=== PATIENT | male | born 1945 | race Caucasian/White ===

== ENCOUNTER 2018-05-11 08:57 | Day surgery (SDC) | payer MEDICARE, OTHER ==
[~2018-05-11] VITALS: Ht 180.3 cm; Wt 69.2 kg
[2018-05-11 09:26] VITALS: BP 119/77; PULSE 65; TEMP 97.4
[2018-05-11] MEDS ORDERED: ATIVAN 0.50.5 MG/TAB PO (09:49)
[2018-05-11] MEDS ORDERED: MULTI VITAMINS1 TAB PO (09:54)
[2018-05-11] MEDS ORDERED: VITAMIN C500 MG PO (09:55)
[2018-05-11] MEDS ORDERED: GARLIC100 MG PO (09:55)
[2018-05-11] MEDS ORDERED: [UNRECOGNIZED DRUG - OTHER] PO (09:55)
[2018-05-11] MEDS ORDERED: OMEGA-31 SGL PO (09:55)
[2018-05-11] MEDS ORDERED: NATURE'S BLEN1200 MG PO (09:56)
[2018-05-11] MEDS ORDERED: B COMPLEX #11 TA1 PO (09:56)
[2018-05-11] MEDS ORDERED: LIVER DETOX PO (09:56)
[2018-05-11] MEDS ORDERED: THE MEDICINE S200 M2 PO (09:57)
[2018-05-11] MEDS ORDERED: [UNRECOGNIZED DRUG - OTHER] PO (09:57)
[2018-05-11] MEDS ORDERED: VITAMINE200 PO (09:57)
[2018-05-11 11:10] VITALS: BP 123/53; PULSE 69; TEMP 97.6
[2018-05-11 11:25] VITALS: PULSE 62
[2018-05-11 11:40] VITALS: BP 124/90; PULSE 65
[2018-05-11 11:55] VITALS: BP 126/76; PULSE 60
== END 2018-05-11 12:30 | disposition home or self-care (01) ==
LOC: SDCO 08:57
DX: Z12.11 Encounter for screening for malignant neoplasm of colon (principal); K64.0 First degree hemorrhoids; Z85.828 Personal history of other malignant neoplasm of skin
CPT/HCPCS: J2250; J3010; J7030